=== PATIENT | male | born 1975 | race American Indian/Alaskan Native ===

== ENCOUNTER 2017-11-07 07:23 | Emergency (ER) | payer SELFPAY ==
[2017-11-07 07:44] VITALS: BP 135/91
[2017-11-07] MEDS ORDERED: NACL 0.9% 1000 ML 1,000 ML IV ONE (07:49)
[2017-11-07 08:19] LABS: Basophils % (Auto) 0.5 % (0.0-1.8); Eosinophils # (Auto) 0.2 K/mm3 (0.0-0.4); Eosinophils % (Auto) 1.7 % (0.0-4.3); Hematocrit 40.9 % (35.5-45.6); Hemoglobin 14.4 gm/dl (11.8-15.2); Lymphocytes # (Auto) 2.6 K/mm3 (1.2-5.4); Lymphocytes % (Auto) 29.5 % (13.4-35.0); Mean Corpuscular HGB Conc 35 % (32-34); Mean Corpuscular Hemoglobin 32 pg (28-32); Mean Corpuscular Volume 90 fl (84-94); Monocytes # (Auto) 0.6 K/mm3 (0.0-0.8); Monocytes % (Auto) 6.9 % (0.0-7.3); Platelet Count 206 K/mm3 (140-440); Red Blood Count 4.55 M/mm3 (3.65-5.03); Red Cell Distribution Width 13.7 % (13.2-15.2)
[2017-11-07 08:32] LABS: Alanine Aminotransferase 18 units/L (7-56); Albumin 4.3 g/dL (3.9-5); BUN/Creatinine Ratio 24; Blood Urea Nitrogen 19 mg/dL (9-20); Hemolysis Index 23; Lipase 15 units/L (13-60)
[2017-11-07 08:56] LABS: INR 0.85 (0.87-1.13)
[2017-11-07 08:57] LABS: Partial Thromboplastin Time 30.7 Sec. (24.2-36.6)
--- NOTE | 2017-11-07 09:45 | Emergency Department Report ---
ED ENT HPI - General Chief complaint: GI Bleed Stated complaint: VOMITING BLOOD Time Seen by Provider: 11/07/17 09:23 Source: patient Mode of arrival: Ambulatory Limitations: No Limitations - History of Present Illness Initial comments: Mr. Ibarra is a healthy 42-year-old male presents with bleeding from the mouth. 2 years ago he had a decayed tooth that broke off. He feels that the bleeding is coming from that tooth socket. He denies pain. Denies trauma. He denies bleeding or bruising. He did have a nosebleed at a young age which required nasal packing. Otherwise he has been in good health. Denies vomiting. He denies bloody stools. He denies hemoptysis. MD complaint: other (bleeding from mouth) -: Sudden, days(s) (1 day ago) Location: tooth # (2) Severity: mild Quality: other (no pain) Improves with: rest Worsens with: eating Context- Dental: history of dental caries Associated Symptoms: denies: fever, cough, gum swelling, toothache, pain with swallowing, sore throat, tinnitus, discharge from ear, rhinorrhea - Related Data Home Medications Medication Instructions Recorded Confirmed Last Taken No Known Home Medications [No 06/01/14 06/01/14 Unknown Reported Home Medications] Allergies Allergy/AdvReac Type Severity Reaction Status Date / Time Penicillins AdvReac Unknown Verified 05/26/14 15:44 shellfish derived AdvReac Unknown Verified 05/26/14 15:44 ED Dental HPI - General Chief complaint: GI Bleed Stated complaint: VOMITING BLOOD Time Seen by Provider: 11/07/17 09:23 Source: patient Mode of arrival: Ambulatory Limitations: No Limitations - Related Data Home Medications Medication Instructions Recorded Confirmed Last Taken No Known Home Medications [No 06/01/14 06/01/14 Unknown Reported Home Medications] Allergies Allergy/AdvReac Type Severity Reaction Status Date / Time Penicillins AdvReac Unknown Verified 05/26/14 15:44 shellfish derived AdvReac Unknown Verified 05/26/14 15:44 ED Review of Systems ROS: Stated complaint: VOMITING BLOOD Other details as noted in HPI Comment: All other systems reviewed and negative Constitutional: denies: fever, malaise, weakness ENT: denies: ear pain, throat pain, dental pain Respiratory: denies: cough ED Past Medical Hx - Past Medical History Previous Medical History?: No Hx Psychiatric Treatment: Yes (ETOH abuse) - Surgical History Past Surgical History?: No - Social History Smoking Status: Current Every Day Smoker Substance Use Type: Alcohol - Medications Home Medications: Home Medications Medication Instructions Recorded Confirmed Last Taken Type No Known Home Medications [No 06/01/14 06/01/14 Unknown History Reported Home Medications] ED Physical Exam - General Limitations: No Limitations General appearance: alert, in no apparent distress, other (well-appearing, energetic, talkative, very pleasant healthy individual) - Head Head exam: Present: atraumatic, normocephalic - Eye Eye exam: Present: normal appearance - ENT ENT exam: Present: mucous membranes moist, other (tooth socket #2 decayed tooth mostly absent due to remote fracture small amount of irritated gums surrounding no active bleeding, small clot at tooth #2 no surrounding fluctuance) - Neck Neck exam: Present: normal inspection, other (no edema). Absent: tenderness - Respiratory Respiratory exam: Present: normal lung sounds bilaterally. Absent: respiratory distress - Cardiovascular Cardiovascular Exam: Present: regular rate, normal rhythm, normal heart sounds. Absent: bradycardia, tachycardia, irregular rhythm, systolic murmur, diastolic murmur, rubs, gallop - GI/Abdominal GI/Abdominal exam: Present: soft, normal bowel sounds. Absent: distended, tenderness, guarding, rebound - Rectal Rectal exam: Present: deferred - Extremities Exam Extremities exam: Present: normal inspection - Back Exam Back exam: Present: normal inspection - Neurological Exam Neurological exam: Present: alert, oriented X3 - Psychiatric Psychiatric exam: Present: normal affect, normal mood - Skin Skin exam: Present: warm, dry, intact, normal color. Absent: rash ED Course Vital Signs 11/07/17 11/07/17 07:39 07:46 Temperature 98.6 F 98.6 F Pulse Rate 93 H 93 H Respiratory 16 16 Rate Blood Pressure 135/91 135/91 O2 Sat by Pulse 99 99 Oximetry ED Medical Decision Making - Lab Data Result diagrams: 11/07/17 07:56 11/07/17 07:56 Laboratory Results - last 24 hr 11/07/17 11/07/17 11/07/17 07:56 07:56 07:56 WBC 9.0 RBC 4.55 Hgb 14.4 Hct 40.9 MCV 90 MCH 32 MCHC 35 H RDW 13.7 Plt Count 206 Lymph % (Auto) 29.5 [place] % (Auto) 6.9 Eos % (Auto) 1.7 Baso % (Auto) 0.5 Lymph # 2.6 [place] # 0.6 Eos # 0.2 Baso # 0.0 Seg Neutrophils % 61.4 Seg Neutrophils # 5.5 PT 12.0 L INR 0.85 L APTT 30.7 Sodium 138 Potassium 4.4 Chloride 103.8 Carbon Dioxide 26 Anion Gap 13 BUN 19 Creatinine 0.8 Estimated GFR > 60 BUN/Creatinine Ratio 24 Glucose 96 Calcium 9.0 Total Bilirubin 0.30 AST 15 ALT 18 Alkaline Phosphatase 73 Total Protein 7.3 Albumin 4.3 Albumin/Globulin Ratio 1.4 Lipase 15 Blood Type Antibody Screen 11/07/17 07:56 WBC RBC Hgb Hct MCV MCH MCHC RDW Plt Count Lymph % (Auto) [place] % (Auto) Eos % (Auto) Baso % (Auto) Lymph # [place] # Eos # Baso # Seg Neutrophils % Seg Neutrophils # PT INR APTT Sodium Potassium Chloride Carbon Dioxide Anion Gap BUN Creatinine Estimated GFR BUN/Creatinine Ratio Glucose Calcium Total Bilirubin AST ALT Alkaline Phosphatase Total Protein Albumin Albumin/Globulin Ratio Lipase Blood Type O POSITIVE Antibody Screen Negative Vital Signs - 24 hr 11/07/17 11/07/17 07:39 07:46 Temperature 98.6 F 98.6 F Pulse Rate 93 H 93 H Respiratory 16 16 Rate Blood Pressure 135/91 135/91 O2 Sat by Pulse 99 99 Oximetry - Medical Decision Making Mr. Ibarra presents with tooth decay and gum bleeding due to dental caries and gingivitis. I prescribed penicillin. I've also given dental referrals. Normal platelet count on CBC. Critical care attestation.: If time is entered above; I have spent that time in minutes in the direct care of this critically ill patient, excluding procedure time. ED Disposition Clinical Impression: Dental caries, Gingivitis Disposition: DC-01 TO HOME OR SELFCARE Is pt being admited?: No Does the pt Need Aspirin: No Condition: Stable Instructions: Dental Caries (ED), Gingivitis (ED) Referrals: [facility] [Outside] - 3-5 Days Forms: Accompanied Note, Work/School Release Form(ED)
== END 2017-11-07 09:59 | disposition home or self-care (01) ==
LOC: ED 07:23
DX: K02.9 Dental caries, unspecified (principal); K05.10 Chronic gingivitis, plaque induced; Z91.013 Allergy to seafood; Z88.0 Allergy status to penicillin; F17.200 Nicotine dependence, unspecified, uncomplicated
CPT/HCPCS: 36415; 80053; 83690; 85025; 85610; 85730; 86850; 86900; 86901; 93005; 93010; 99284

== ENCOUNTER 2020-09-12 12:38 | Emergency (ER) | payer SELFPAY ==
[2020-09-12 13:40] VITALS: BP 156/96
--- NOTE | 2020-09-12 14:02 | Emergency Department Report ---
ED General Adult HPI - General Chief complaint: Dental/Oral Stated complaint: GUMS SWOLLEN/BLEEDING Time Seen by Provider: 09/12/20 13:53 Source: patient Mode of arrival: Ambulatory Limitations: No Limitations - History of Present Illness Initial comments: 45-year-old -[place] male patient presents with complaints of gum pain and swelling and left upper dental pain x4 days. States 1 month ago had similar symptoms and was treated with clindamycin his symptoms resolved. Patient states he did not follow-up with a dental specialist. He rates his pain as a 9/10 in severity and states it is worsening since its onset. He denies any trouble sw allowing, fever/chills/sweats, or facial swelling. Severity scale (0 -10): 0 - Related Data Previous Rx's Medication Instructions Recorded Last Taken Type Acetaminophen/Codeine [Tylenol 1 tab PO Q8H PRN #8 tab 09/12/20 Unknown Rx /Codeine # 3 tab] Chlorhexidine Mouthwash [Peridex] 15 ml MM BID 14 Days #1 bottle 09/12/20 Unknown Rx Clindamycin [Clindamycin CAP] 300 mg PO Q6H 7 Days #28 capsule 09/12/20 Unknown Rx Ibuprofen [Motrin 800 MG tab] 800 mg PO Q8HR PRN #20 tablet 09/12/20 Unknown Rx metroNIDAZOLE [Flagyl TAB] 500 mg PO Q8HR 7 Days #21 tablet 09/12/20 Unknown Rx Allergies Allergy/AdvReac Type Severity Reaction Status Date / Time Penicillins AdvReac Unknown Verified 05/26/14 15:44 shellfish derived AdvReac Unknown Verified 05/26/14 15:44 ED Review of Systems ROS: Stated complaint: GUMS SWOLLEN/BLEEDING Other details as noted in HPI Constitutional: denies: chills, fever, malaise ENT: dental pain. denies: throat pain Respiratory: denies: cough Cardiovascular: denies: chest pain Gastrointestinal: denies: nausea, vomiting Hematological/Lymphatic: denies: swollen glands ED Past Medical Hx - Past Medical History Previous Medical History?: Yes Hx Psychiatric Treatment: Yes (ETOH abuse) - Social History Smoking Status: Current Every Day Smoker Substance Use Type: Alcohol - Medications Home Medications: Home Medications Medication Instructions Recorded Confirmed Last Taken Type Acetaminophen/Codeine [Tylenol 1 tab PO Q8H PRN #8 tab 09/12/20 Unknown Rx /Codeine # 3 tab] Chlorhexidine Mouthwash [Peridex] 15 ml MM BID 14 Days #1 bottle 09/12/20 Unknown Rx Clindamycin [Clindamycin CAP] 300 mg PO Q6H 7 Days #28 capsule 09/12/20 Unknown Rx Ibuprofen [Motrin 800 MG tab] 800 mg PO Q8HR PRN #20 tablet 09/12/20 Unknown Rx metroNIDAZOLE [Flagyl TAB] 500 mg PO Q8HR 7 Days #21 tablet 09/12/20 Unknown Rx ED Physical Exam - General Limitations: No Limitations General appearance: alert, in no apparent distress - Head Head exam: Present: atraumatic, normocephalic - Eye Eye exam: Present: normal appearance. Absent: scleral icterus - Expanded ENT Exam Expanded Mouth exam: Absent: trismus, muffled voice Teeth exam: Present: gingival enlargement (Diffuse gingivitis noted) 1 - Dental Tenderness (Mild surrounding erythema, no obvious abscess noted) Throat exam: Negative: tonsillar erythema, tonsillomegaly - Neck Neck exam: Present: full ROM. Absent: lymphadenopathy - Respiratory Respiratory exam: Absent: respiratory distress - Cardiovascular Cardiovascular Exam: Present: regular rate - Neurological Exam Neurological exam: Present: alert, oriented X3 - Psychiatric Psychiatric exam: Present: normal affect, normal mood - Skin Skin exam: Present: warm, dry, intact, normal color. Absent: rash ED Course Vital Signs 09/12/20 09/12/20 13:39 14:09 Temperature 98.3 F Pulse Rate 104 H 95 H Respiratory 22 Rate Blood Pressure 156/96 [Right] O2 Sat by Pulse 99 Oximetry ED Medical Decision Making - Medical Decision Making 45-year-old -[place] male patient presents with complaints of gum pain and swelling and left upper dental pain x4 days. States 1 month ago had similar symptoms and was treated with clindamycin his symptoms resolved. Patient states he did not follow-up with a dental specialist. He rates his pain as a 9/10 in severity and states it is worsening since its onset. He denies any trouble swallowing, fever/chills/sweats, or facial swelling. Diffuse gingivitis noted with left upper dental tenderness and surrounding erythema on exam. No obvious abscess noted. Antibiotics and pain medication given. Dental referral-patient provided with dental specialist list. He is well-appearing and stable for discharge home peer discussed need for follow-up morning. Strict return precautions were discussed in detail patient verbalized understanding. Critical care attestation.: If time is entered above; I have spent that time in minutes in the direct care of this critically ill patient, excluding procedure time. ED Disposition Clinical Impression: Gingivitis, Dental infection Disposition: DC- TO HOME OR SELFCARE Is pt being admited?: No Condition: Stable Instructions: Dental Abscess, Trench Mouth Additional Instructions: Please follow-up with a dental specialist provided on the list within 2 days. Prescriptions: Clindamycin [Clindamycin CAP] 300 mg PO Q6H 7 Days #28 capsule metroNIDAZOLE [Flagyl TAB] 500 mg PO Q8HR 7 Days #21 tablet Ibuprofen [Motrin 800 MG tab] 800 mg PO Q8HR PRN #20 tablet PRN Reason: pain Chlorhexidine Mouthwash [Peridex] 15 ml MM BID 14 Days #1 bottle Acetaminophen/Codeine [Tylenol /Codeine # 3 tab] 1 tab PO Q8H PRN #8 tab PRN Reason: Pain , Severe (7-10)
== END 2020-09-12 14:10 | disposition home or self-care (01) ==
LOC: ED 12:38
DX: K05.10 Chronic gingivitis, plaque induced (principal); K04.7 Periapical abscess without sinus; F17.200 Nicotine dependence, unspecified, uncomplicated; Z79.899 Other long term (current) drug therapy; Z88.0 Allergy status to penicillin; Z91.013 Allergy to seafood
CPT/HCPCS: 99282